=== PATIENT | female | born 1970 | race Caucasian/White ===

== ENCOUNTER 2017-03-05 23:34 | Emergency (ER) | payer OTHER ==
[~2017-03-05] VITALS: Ht 167.6 cm; Wt 72.7 kg
[2017-03-05] MEDS ORDERED: SERT100T12 PO (23:51)
[2017-03-06] MEDS ORDERED: SULFAMETHOX/TRIMETH DS 800-160 MG/TABLET PO ONE (03:30)
[2017-03-06] MEDS ORDERED: MUPIROCIN CALCIUM 2% 22 GM OINTMENT TP ONE (03:30)
[2017-03-06 03:37] VITALS: BP 116/80
== END 2017-03-06 03:47 | disposition home or self-care (01) ==
LOC: EMS 23:36
DX: H11.31 Conjunctival hemorrhage, right eye (principal); N64.9 Disorder of breast, unspecified
CPT/HCPCS: 99283

== ENCOUNTER 2017-06-27 18:55 | Emergency (ER) | payer OTHER ==
[~2017-06-27] VITALS: Ht 167.6 cm; Wt 72.7 kg
[~2017-06-27 18:55] MED LIST: SERT100T12 PO
[2017-06-27 18:56] VITALS: BP 128/78
== END 2017-06-27 20:04 | disposition left against medical advice (07) ==
LOC: EMS 18:56
DX: Z53.21 Procedure and treatment not carried out due to patient leaving prior to being seen by health care provider (principal)